=== PATIENT | male | born 1965 | race Caucasian/White ===

== ENCOUNTER 2023-05-04 16:27 | Inpatient (IN) | payer OTHER ==
[~2023-05-04] VITALS: Ht 188 cm; Wt 101.7 kg
[2023-05-04] VITALS (19 sets, daily range): BP systolic 120–166; BP diastolic 65–88
[~2023-05-04 16:27] MED LIST: ACET500; Aspir 8181 MG PO; IBUP200; LOSA25 PO; Saw Palmetto450 MG PO
[2023-05-04 16:45] LABS: BASOPHILS ABSOLUTE AUTO 0.09 K/mm3 (0.00-0.23); BASOPHILS PERCENT AUTO 1 % (0-2); EOSINOPHILS ABSOLUTE AUTO 0.16 K/mm3 (0.00-0.68); EOSINOPHILS PERCENT AUTO 1 % (0-6); Hemoglobin 19.7 g/dL (13.5-17.5); IMMATURE GRAN ABSOLUTE AUTO 0.07 K/mm3 (0.00-0.10); IMMATURE GRAN PERCENT AUTO 0 % (0-1); LYMPHOCYTES ABSOLUTE AUTO 5.27 K/mm3 (0.84-5.20); LYMPHOCYTES PERCENT AUTO 30 % (21-46); MONOCYTES ABSOLUTE AUTO 1.17 K/mm3 (0.16-1.47); MONOCYTES PERCENT AUTO 7 % (4-13); Mean Corpuscular HGB 32.1 pg (26.0-34.0); Mean Corpuscular HGB Conc 34.7 g/dL (31.5-36.5); Mean Corpuscular Volume 93 fL (80-100); Mean Platelet Volume 10.8 fL (9.1-12.4); NEUTROPHILS ABSOLUTE AUTO 10.87 K/mm3 (1.96-9.15); NEUTROPHILS PERCENT AUTO 62 % (41-73); Platelet Count 235 K/mm3 (150-400); RDW Coefficient Variation 12.4 % (11.7-14.2); RDW Standard Deviation 42.6 fL (35.1-46.3); Red Blood Cell Count 6.14 M/mm3 (4.30-5.90); White Blood Cell Count 17.63 K/mm3 (4.00-11.30)
[2023-05-04 16:45] LABS: Calcium, Ionized (POC) 1.07 mmol/L (1.10-1.46); Chloride (POC) 105 mmol/L (98-108); Glucose (ISTAT POC) 192 mg/dL (70-99); Hemoglobin (POC) 20.1 g/dL (13.5-17.5); Potassium (POC) 3.5 mmol/L (3.5-5.5); Sodium (POC) 141 mmol/L (135-148); Total CO2 (POC) 22 mmol/L (21-32)
[2023-05-04 16:50] LABS: Hematocrit 56.8 % (37.0-53.0)
[2023-05-04 17:01] LABS: Alanine Aminotransfer (ALT/SGP 26 U/L (12-78); Albumin, Blood 4.2 g/dL (3.4-5.0); Albumin/Globulin Ratio 1.2 (0.8-1.8); Alk Phos 77 U/L (50-136); Anion Gap 11 mmol/L (6-16); Aspartate Aminotrans (AST/SGOT 18 U/L (12-37); Bilirubin, Total 0.9 mg/dL (0.1-1.0); Blood Urea Nitrogen 11 mg/dL (8-24); Bun/Creatinine Ratio 11.2 (12.0-20.0); CHOL/HDL RATIO 5.6; CO2, Blood 22 mmol/L (21-32); Calcium, Blood 9.5 mg/dL (8.5-10.1); Chloride, Blood 108 mmol/L (98-108); Cholesterol 214 mg/dL (50-200); Creatinine, Blood 0.99 mg/dL (0.60-1.20); Globulin, Blood 3.4 g/dL (2.2-4.0); Glomerular Filtration Rate 88 (60-); Glucose, Blood 202 mg/dL (70-99); HDL Cholesterol 38 mg/dL (>39); LDL/HDL RATIO 3.7; Low Density Lipoprotein Chol 139 mg/dL (0-110); Magnesium, Blood 2.2 mg/dL (1.6-2.4); Potassium, Blood 3.6 mmol/L (3.5-5.5); Sodium, Blood 141 mmol/L (136-145); Total Protein, Blood 7.6 g/dL (6.4-8.2); Triglycerides 183 mg/dL (30-160); Very Low Density Lipoprot Chol 36 mg/dL (6-32)
--- NOTE | 2023-05-04 18:59 | NUR ---
CARE ASSUMPTION/DAY SHIFT SUMMARY PT ARRIVED TO THE UNIT FROM COURT REPORTER ON RM AIR. PT IS AWAKE AND COMMUNICATING APPROPRIATELY W STAFF. PT DENIES ANY PAIN OR NAUSEA. BP WNL AND STABLE. MONITOR SHOWING SR 70'S W ST ELEVATION. SPO2 >94% ON RM AIR. TR BAND IN PLACE ON R RADIAL W 10ML INFLATED, WILL START TO DEFLATE AT 1937 PER [facility] RN. PT EDUCATED ON IGNITION RISK DUE TO SURROUNDING O2. PT VERBALIZED UNDERSTANDING.
[2023-05-04 19:26] LABS: International Normalized Ratio 1.04; Prothrombin Time Results 10.9 Sec (9.7-11.5)
--- NOTE | 2023-05-04 19:43 | NUR ---
PATIENT RESTING IN BED VISITING WITH FRIENDS. DOCTOR DREILING IN TO SEE PATIENT. CONFIRMED AGGRASTAT BOLUS ONLY NO DRIP, START BRIL[place]TA TONIGHT. TR BAND IN PLACE TO RIGHT WRIST WITH SMALL AMT OF BLOOD CONTAINED AT INSERTION SITE. AREA AROUND SITE SOFT NO BRUISING SEEN. PATIENT VERBALIZED THAT HE CONTINUES TO HAVE SLIGHT PRESSURE 1/10 TO MID CHEST. NO CHANGE WITH DEEP BREATH.
--- NOTE | 2023-05-04 21:02 | NUR ---
PATIENT C/O PAIN TO MID UPPER BACK BETWEEN SHOULDER BLADES. TYLENOL PO GIVEN.
[2023-05-05] VITALS (23 sets, daily range): BP systolic 112–163; BP diastolic 59–90
--- NOTE | 2023-05-05 01:19 | NUR ---
PATIENT TR BAND OFF, RIGHT WRIST ACCESS SITE CLEANSED WITH ALCOHOL SWAB AND COVERED WITH CLEAR DRESSING, ARM BOARD REMAINS IN PLACE TO REMIND PATIENT TO NOT USE HIS RIGHT WRIST. NO C/O PAIN AT THIS TIME. VERBALIZED THAT HE IS ABLE TO SLEEP A LITTLE
[2023-05-05 03:38] LABS: BASOPHILS ABSOLUTE AUTO 0.05 K/mm3 (0.00-0.23); BASOPHILS PERCENT AUTO 0 % (0-2); EOSINOPHILS ABSOLUTE AUTO 0.01 K/mm3 (0.00-0.68); EOSINOPHILS PERCENT AUTO 0 % (0-6); Hematocrit 51.8 % (37.0-53.0); Hemoglobin 17.7 g/dL (13.5-17.5); IMMATURE GRAN ABSOLUTE AUTO 0.07 K/mm3 (0.00-0.10); IMMATURE GRAN PERCENT AUTO 0 % (0-1); LYMPHOCYTES ABSOLUTE AUTO 1.99 K/mm3 (0.84-5.20); LYMPHOCYTES PERCENT AUTO 12 % (21-46); MONOCYTES ABSOLUTE AUTO 1.15 K/mm3 (0.16-1.47); MONOCYTES PERCENT AUTO 7 % (4-13); Mean Corpuscular HGB 31.6 pg (26.0-34.0); Mean Corpuscular HGB Conc 34.2 g/dL (31.5-36.5); Mean Corpuscular Volume 93 fL (80-100); Mean Platelet Volume 10.8 fL (9.1-12.4); NEUTROPHILS ABSOLUTE AUTO 13.71 K/mm3 (1.96-9.15); NEUTROPHILS PERCENT AUTO 81 % (41-73); Platelet Count 187 K/mm3 (150-400); RDW Coefficient Variation 12.5 % (11.7-14.2); RDW Standard Deviation 42.9 fL (35.1-46.3); White Blood Cell Count 16.98 K/mm3 (4.00-11.30)
[2023-05-05 03:59] LABS: Albumin, Blood 3.4 g/dL (3.4-5.0); Albumin/Globulin Ratio 1.1 (0.8-1.8); Bilirubin, Total 0.8 mg/dL (0.1-1.0); Bun/Creatinine Ratio 15.4 (12.0-20.0); Calcium, Blood 8.7 mg/dL (8.5-10.1); Creatinine, Blood 0.71 mg/dL (0.60-1.20); Potassium, Blood 4.5 mmol/L (3.5-5.5); Total Protein, Blood 6.4 g/dL (6.4-8.2)
--- NOTE | 2023-05-05 06:38 | NUR ---
SUMMARY PATIENT SLEEPING OFF AND ON T/O NIGHT AWAKENS TO SLIGHT STIMULI. NO C/O CP. VERBALIZED THAT HE IS JUST TIRED. RIGHT WRIST WITH ARM BOARD IN PLACE. DRESSING INTACT WITH SMALL AMT BLOOD CONTAINED UNDER DRESSING, NO FURTHER OOZING SEEN, NO SWELLING, NO BRUISING. TROP LEVELS CONTINUE TO BE ELEVATED. POST STEMI/PCI EKG DONE
--- NOTE | 2023-05-05 07:15 | NUR ---
CARE ASSUMPTION DURING BEDSIDE SHIFT REPORT WITH RUPAL RICE THE PT IS LYING IN BED ON RM AIR SLEEPING COMFORTABLY. PT AROUSES EASILY TO MU VOICE AND IS COMMUNICATING APPROPRIATELY. PT DENYING ANY PAIN AT THIS TIME. BP WNL AND STABLE. MONITOR SHOWING SB IN THE 50'S. PT'S R RADIAL SITE ASSESSED BY THIS RN W RUPAL RICE AT BEDSIDE, SITE IS C/D/I W OPSITE DRESSING AND IMMOBILIZER BOARD IN PLACE.
--- NOTE | 2023-05-05 09:03 | NUR ---
UPDATE PT REPORTING HX OF ADVERSE REACTION TO STATIN MEDICATIONS SO DR. DUTTA CONTACTED AND NOTIFIED OF THIS. DR. DUTTA STATING " THAT THE ADVERSE REATION REPORTED SUCH BLURRY VISION AND SYNCOPE ARE NOT SIDE EFFECTS TO STATINS AND THAT THE PT IS BETTER OFF TAKING THE MEDICATION". THIS RN WILL RELAY THIS TO THE PT AND SEE IF HE WANTS TO TAKE HIS 0900 ATORVASTATIN.
--- NOTE | 2023-05-05 15:23 | NUR ---
Pt. is awake and welcomes my visit. Pt. is reserved at first, but after facilitating a life review rapport is established. Pt. displays evidence of wareness and engagement. Pt. verbalizes how fortunate he was for getting quick surgical procedures. Pts. friend arrives and even more rappor is established. Pt. verbalized gratitude for the spiritual care visit and welcomed this residential sales to return.
--- NOTE | 2023-05-05 17:49 | NUR ---
END OF SHIFT PT BROUGHT TO PCU-02 FROM ICU BY WHEELCHAIR @ 1320. PT A&O X4, ABLE TO STAND & AMBULATE TO PCU BED. VSS. MONITOR SHOWING SB-SR, HR 50s-60s. PT DENIES CP OR DISCOMFORT. SPO2 > 92% ON RA. R RADIAL ACCESS SITE WNL. TRANSPARENT DRESSING & ARM BOARD IN PLACE.
[2023-05-06 03:23] VITALS: BP 116/74
--- NOTE | 2023-05-06 04:43 | NUR ---
SHIFT SUMMARY A/Ox4 AND COOPERATIVE WITH CARE. ANSWERS QUESTIONS APPROPRIATELY AND ABLE TO MAKE HIS NEEDS KNOWN. NO ACUTE EVENTS OVERNIGHT FOR PT WAS ABLE TO SLEEP T/O MOST OF THE SHIFT. CARDIAC, REMAINS IN SB-SR 50-70 S WITH NO REPORTS OF CP OR PRESSURE T/O THE NIGHT. SBP REMAINS STABLE RANGING 110-130 S. RIGHT RADIAL ACCESS SITE FROM RECENT ANGIO REMAINS WNL. SITE IS NON-TENDER WITH NO HEMATOMA AND OR BLEEDING NOTED. HAND WARM TO THE TOUCH WITH PULSES PRESENT ABOVE AND BELOW THE SITE. DENIES ANY TINGLING OR SENSATION LOSS. SITE COVERED IN PROTECTIVE TEGADERM WELL ARM BOARD. RESPIRATORY, MAINTAINS SPO2 >90% ON RA WITH NO REPORTS OF SOB OR DYSPNEA. LS CLEAR T/O. GI/, ABD REMAINS SOFT/NONTENDER, BS PRESENT IN ALL QUADRANTS. PER DAY SHIFT REPORT, PT HAD ONE BM DURING THE PREVIOUS SHIFT. ABLE TO INDEPENDENTLY ABULATE TO THE BATHROOM WITH NO ASSISTANCE NEEDED FROM STAFF. ASSESSED PT FOR RISKS OF ANY IGNITION SOURCES WELL BEHAVIORS FOR INCREASED RISKS OF FIRE DANGER. PT EDUCATED ON COMMON SOURCES OF IGNITION WELL NEED TO KEEP A SAFE ENVIRONMENT. PT VOICED UNDERSTANDING. POSSIBLE D/C THIS AM PER CLEARANCE WITH CARDIOLOGY. NO NEW ORDERS AT THIS TIME, WILL REPORT TO ONCOMING RN. MOOK LU OF THIS NOTE.
[2023-05-06 08:00] VITALS: BP 116/78
[2023-05-06] MEDS ORDERED: ATOR80 PO (09:09)
[2023-05-06] MEDS ORDERED: METO50ER PO (09:09)
[2023-05-06] MEDS ORDERED: Nicoderm Cq1 EAC1 TOP (09:10)
[2023-05-06] MEDS ORDERED: TICA90TA PO (09:10)
--- NOTE | 2023-05-06 10:00 | NUR ---
DISCHARGE HOME PT A&O X4. VSS. SPO2 > 92% ON RA. MONITOR SHOWING NSR. PT DENYING CP/DISCOMFORT OR ANY OTHER PAIN/DISCOMFORT. R RADIAL ACCESS SITE WNL W/ TRANSPARENT DRESSING & ARM BOARD IN PLACE. DISCHARGE INSTRUCTIONS REVIEWED W/ PT & SENT HOME W/ PT. PIVs REMOVED. PT TAKEN OUT IN WHEELCHAIR W/ TORIN @ APPROX 1000.
== END 2023-05-06 10:00 | disposition home or self-care (01) | DRG 282 ==
LOC: ER 16:27 → ICUE 16:36 → ER 16:36 → ICUE 16:36 → PCU 05-05 13:34
PROVIDERS: Student in an Organized Health Care Education/Training Program; ADMIT Internal Medicine Interventional Cardiology
PROC: B2111ZZ Fluoroscopy of Multiple Coronary Arteries using Low Osmolar Contrast (ICD-10-PCS; principal; 2023-05-06)
PROC: 4A023N7 Measurement of Cardiac Sampling and Pressure, Left Heart, Percutaneous Approach (ICD-10-PCS; 2023-05-06)
DX: I21.09 ST elevation (STEMI) myocardial infarction involving other coronary artery of anterior wall (principal); I25.119 Atherosclerotic heart disease of native coronary artery with unspecified angina pectoris; K44.9 Diaphragmatic hernia without obstruction or gangrene; I10 Essential (primary) hypertension; E78.5 Hyperlipidemia, unspecified; I24.8 Other forms of acute ischemic heart disease; K21.00 Gastro-esophageal reflux disease with esophagitis, without bleeding; D72.829 Elevated white blood cell count, unspecified; F10.90 Alcohol use, unspecified, uncomplicated; Z90.89 Acquired absence of other organs; Z95.5 Presence of coronary angioplasty implant and graft; I25.2 Old myocardial infarction; Z98.890 Other specified postprocedural states; Z87.891 Personal history of nicotine dependence; Z88.5 Allergy status to narcotic agent; Z79.82 Long term (current) use of aspirin; Z79.899 Other long term (current) drug therapy
CPT/HCPCS: 36415; 76937; 80047; 80053; 80061; 83735; 84484; 85014; 85025; 85347; 85610; 85730; 86850; 86900; 86901; 93005; 93010; 93306; 93454; 96374-59; 99152; 99153; 99285-25; A9270; C1725; C1769; C1874; C1887; C1894; C9600; C9606; G0378; J1644; J2250; J3010; J3246; J7030; J7050; Q9967

== ENCOUNTER 2023-05-07 21:10 | Observation (INO) | payer OTHER | END 2023-05-08 13:16 | disposition home or self-care (01) | LOC: ER 21:10 → ICUE 23:18 | PROVIDERS: ADMIT Internal Medicine Interventional Cardiology | DX: I20.8 Other forms of angina pectoris (principal); I25.2 Old myocardial infarction; E78.5 Hyperlipidemia, unspecified; I10 Essential (primary) hypertension; Z95.5 Presence of coronary angioplasty implant and graft; Z87.891 Personal history of nicotine dependence; I25.10 Atherosclerotic heart disease of native coronary artery without angina pectoris ==

== ENCOUNTER 2024-06-18 08:30 | Emergency (ER) | payer OTHER ==
[~2024-06-18] VITALS: Ht 188 cm; Wt 90.7 kg
[~2024-06-18 08:30] MED LIST changes: +ATOR80 PO; +METO50ER PO; +Nicoderm Cq1 EAC1 TOP; +TICA90TA PO
[2024-06-18 09:04] LABS: BASOPHILS ABSOLUTE AUTO 0.05 K/mm3 (0.00-0.23); BASOPHILS PERCENT AUTO 0 % (0-2); EOSINOPHILS ABSOLUTE AUTO 0.27 K/mm3 (0.00-0.68); EOSINOPHILS PERCENT AUTO 2 % (0-6); Hemoglobin 19.5 g/dL (13.5-17.5); IMMATURE GRAN ABSOLUTE AUTO 0.05 K/mm3 (0.00-0.10); IMMATURE GRAN PERCENT AUTO 0 % (0-1); LYMPHOCYTES ABSOLUTE AUTO 3.62 K/mm3 (0.84-5.20); LYMPHOCYTES PERCENT AUTO 28 % (21-46); MONOCYTES ABSOLUTE AUTO 0.89 K/mm3 (0.16-1.47); MONOCYTES PERCENT AUTO 7 % (4-13); Mean Corpuscular HGB 31.5 pg (26.0-34.0); Mean Corpuscular HGB Conc 33.7 g/dL (31.5-36.5); Mean Corpuscular Volume 94 fL (80-100); Mean Platelet Volume 10.5 fL (9.1-12.4); NEUTROPHILS ABSOLUTE AUTO 8.15 K/mm3 (1.96-9.15); NEUTROPHILS PERCENT AUTO 63 % (41-73); Platelet Count 186 K/mm3 (150-400); RDW Standard Deviation 44.4 fL (35.1-46.3); Red Blood Cell Count 6.19 M/mm3 (4.30-5.90); White Blood Cell Count 13.03 K/mm3 (4.00-11.30)
[2024-06-18 09:11] LABS: Albumin, Blood 3.8 g/dL (3.4-5.0); Albumin/Globulin Ratio 1.2 (0.8-1.8); Bilirubin, Total 0.9 mg/dL (0.1-1.0); Bun/Creatinine Ratio 14.3 (12.0-20.0); Creatinine, Blood 0.84 mg/dL (0.60-1.20); Globulin, Blood 3.3 g/dL (2.2-4.0); Potassium, Blood 3.9 mmol/L (3.5-5.5); Total Protein, Blood 7.1 g/dL (6.4-8.2)
[2024-06-18 09:14] LABS: Hematocrit 57.9 % (37.0-53.0)
[2024-06-18] MEDS ORDERED: Ketorolac Tromethamine 30mg Vial IV ONE (10:50)
[2024-06-18] MEDS ORDERED: NS 1,000 ML IV SCH (10:50)
[2024-06-18] MEDS ORDERED: METO10 PO (12:38)
[2024-06-18] MEDS ORDERED: DiphenhydrAMINE HCl 50 MG/ML 1ML Vial IV ONE (12:40)
[2024-06-18] MEDS ORDERED: Acetaminophen 500 MG Tab PO ONE (12:40)
[2024-06-18] MEDS ORDERED: Metoclopramide HCl 5MG / ML 2ML Vial IV ONE (12:40)
[2024-06-18 13:34] VITALS: BP 145/79
== END 2024-06-18 13:52 | disposition home or self-care (01) ==
LOC: ER 08:30
PROVIDERS: Student in an Organized Health Care Education/Training Program
DX: R07.89 Other chest pain (principal); B34.9 Viral infection, unspecified; E78.5 Hyperlipidemia, unspecified; I10 Essential (primary) hypertension; Z87.891 Personal history of nicotine dependence; Z79.82 Long term (current) use of aspirin; Z79.899 Other long term (current) drug therapy; Z88.5 Allergy status to narcotic agent
CPT/HCPCS: 71046; 80053; 83735; 84484; 85025; 85379; 93005; 93010; 96374; 99285-25; A9270; J1200; J1885; J2765; J7030